=== PATIENT | female | born 1980 | race Two or more races ===

== ENCOUNTER 2019-06-05 09:10 | Day surgery (SDC) | payer OTHER | END 2019-06-05 14:05 | disposition home or self-care (01) | LOC: CIR.AMB 09:10 | DX: K57.32 Diverticulitis of large intestine without perforation or abscess without bleeding (principal) ==

== ENCOUNTER 2019-07-28 11:00 | Inpatient (IN) | payer OTHER ==
[~2019-07-28] VITALS: Ht 157.5 cm; Wt 112.9 kg
[2019-07-28] MEDS ORDERED: SYNTHROID50 MCG PO (13:35)
[2019-07-28] MEDS ORDERED: LYRICA150 MG PO (13:35)
[2019-07-28] MEDS ORDERED: CLONAZEPAM0.25 MG PO (13:35)
[2019-07-28] MEDS ORDERED: WELLBUTRIN XL300 MG PO (13:35)
[2019-07-28] MEDS ORDERED: MOBIC7.5 MG PO (13:36)
[2019-07-28] MEDS ORDERED: ZANTAC150 MG PO (13:36)
[2019-07-28] MEDS ORDERED: DUPIXENT300 MG/2 M (13:37)
[2019-08-04] MEDS ORDERED: INTESTINEX680 M1 PO (14:21)
[2019-08-04] MEDS ORDERED: OMEPRAZOLE20 MG PO (14:21)
[2019-08-04] MEDS ORDERED: PERCOCET 5-3251 EACH PO (14:21)
== END 2019-08-04 17:38 | disposition home or self-care (01) | DRG 331 ==
LOC: ADM 11:00 → EDSTATUS 13:00 → O/R 08-01 06:04 → SURH 08-01 06:04
PROVIDERS: ADMIT Surgery
PROC: 0DJD8ZZ Inspection of Lower Intestinal Tract, Via Natural or Artificial Opening Endoscopic (ICD-10-PCS; 2019-08-01)
PROC: 0DTN4ZZ Resection of Sigmoid Colon, Percutaneous Endoscopic Approach (ICD-10-PCS; principal; 2019-08-01 07:00)
DX: K57.20 Diverticulitis of large intestine with perforation and abscess without bleeding (principal)

== ENCOUNTER 2020-09-23 08:15 | Day surgery (SDC) | payer OTHER ==
[~2020-09-23 08:15] MED LIST: CLONAZEPAM0.25 MG PO; DUPIXENT300 MG/2 M; INTESTINEX680 M1 PO; LYRICA150 MG PO; MOBIC7.5 MG PO; OMEPRAZOLE20 MG PO; PERCOCET 5-3251 EACH PO; SYNTHROID50 MCG PO; WELLBUTRIN XL300 MG PO; ZANTAC150 MG PO
== END 2020-09-23 11:50 | disposition home or self-care (01) ==
LOC: AMB-ENDOS 08:15
PROVIDERS: ATTEND Surgery
DX: K62.89 Other specified diseases of anus and rectum (principal); Z20.828 Contact with and (suspected) exposure to other viral communicable diseases